=== PATIENT | male | born 1975 | race Caucasian/White ===

== ENCOUNTER 2020-02-22 07:54 | Outpatient (CLI) | payer OTHER ==
[2020-02-22 14:13] LABS: Hemoglobin 13.6 g/dL (14.0-18.0); Mean Corpuscular HGB CONC 33.6 g/dL (32.0-36.0); Mean Corpuscular Hemoglobin 31.7 pg (27.0-31.0); Mean Corpuscular Volume 94.4 fL (78.0-98.0); Mean Platelet Volume 8.8 fL (7.4-10.4); Platelet Count 307 thou/uL (130-400); RBC Distribution Width 11.2 % (11.5-14.5); Red Blood Cell (RBC) Count 4.27 mill/uL (4.70-6.10); White Blood Cell (WBC) Count 10.1 thou/uL (4.8-10.8)
[2020-02-22 14:17] LABS: PTT 27.9 sec (22.9-36.1)
[2020-02-22 14:22] LABS: INR-International Normal Ratio 0.9; Prothrombin Time 11.8 sec (12.0-14.7)
[2020-02-22 14:53] LABS: Anion Gap 14 mmol/L (10-20); BUN (Urea Nitrogen) 19 mg/dL (8.9-20.6); Calc. Creatinine Clearance 0 mL/min (70-130); Calcium 9.2 mg/dL (7.8-10.44); Carbon Dioxide 26 mmol/L (22-29); Chloride 99 mmol/L (98-107); Estimated GFR-MDRD 70; Glucose 120 mg/dL (70-105); Potassium 4.4 mmol/L (3.5-5.1); Sodium 135 mmol/L (136-145)
--- NOTE | 2020-02-22 15:02 | EKG ---
Test Reason : PREOP Blood Pressure : / mmHG Vent. Rate : 096 BPM Atrial Rate : 096 BPM P-R Int : 140 ms QRS Dur : 088 ms QT Int : 336 ms P-R-T Axes : 051 075 014 degrees QTc Int : 424 ms Normal sinus rhythm Normal ECG No previous ECGs available Confirmed by EFRA TEIXEIRA (2) on 02/22/2020 3:02:13 PM Referred By: Charly LEMUS Confirmed By:EFRA TEIXEIRA
[2020-02-22 18:53] LABS: SARS-CoV-2 MS2 Positive; SARS-CoV-2 N Gene Negative; SARS-CoV-2 S Gene Negative; SARS-CoV-2 by NAA Not Detected (NotDetected); SARS-CoV-2 orf1ab Negative
== END 2020-02-22 07:55 | disposition home or self-care (01) ==
LOC: LABBT 07:54
PROVIDERS: ATTEND Surgery
DX: Z01.818 Encounter for other preprocedural examination (principal); M51.16 Intervertebral disc disorders with radiculopathy, lumbar region; Z20.828 Contact with and (suspected) exposure to other viral communicable diseases
CPT/HCPCS: 80048; 85027; 85610; 85730; 87635; 93005; 93010; U0003

== ENCOUNTER 2020-02-25 07:28 | Day surgery (SDC) | payer OTHER ==
[2020-02-24 08:53] VITALS: BMI 29.0
[2020-02-25] MEDS ORDERED: Ketorolac Tromethamine 30 MG/ML VIAL ONE (10:15)
[2020-02-25] MEDS ORDERED: PHENYLEPHRINE-NS 100 MCG/ML 10 ML SYRINGE ONE (10:15)
[2020-02-25] MEDS ORDERED: PROPOFOL 200 MG/20 ML VIAL ONE (10:15)
[2020-02-25] MEDS ORDERED: Ondansetron PF 4 MG/2 ML Vial ONE (10:15)
[2020-02-25] MEDS ORDERED: Lidocaine 1% PF 5 ML VIAL ONE (10:15)
[2020-02-25] MEDS ORDERED: Glycopyrrolate 0.2 MG/ML 5 ML SYRINGE ONE (10:15)
[2020-02-25] MEDS ORDERED: Rocuronium Bromide 10 MG/ML (10ML VIAL) ONE (10:15)
[2020-02-25] MEDS ORDERED: Dexamethasone 20 MG/5 ML VIAL ONE (10:15)
[2020-02-25] MEDS ORDERED: EPHEDRINE 25 MG/5 ML SYRINGE ONE (10:15)
[2020-02-25] MEDS ORDERED: Midazolam HCl 2 mg/2 ml Vial ONE ×2 (10:38→13:02)
[2020-02-25] MEDS ORDERED: Fentanyl 250 MCG/5 ML VIAL ONE (10:41)
[2020-02-25] MEDS ORDERED: Ketamine 50 MG/ML (10ML VIAL) ONE (10:42)
[2020-02-25] MEDS ORDERED: Phenylephrine 10 MG/ML VIAL ONE (12:18)
[2020-02-25] MEDS ORDERED: Thrombin 5000 UNITS/5 ML VIAL ONE (13:42)
[2020-02-25] MEDS ORDERED: Fentanyl 100 MCG/2 ML VIAL ONE (14:50)
[2020-02-25] MEDS ORDERED: CEFAZOLIN 2 GM in Premix Bag 1 BAG IVPB SCH (15:45)
[2020-02-25] MEDS ORDERED: HYDROcodone/Acetaminophen 5/325 mg Tablet ONE (16:14)
--- NOTE | 2020-02-27 09:02 | OP ---
DATE OF PROCEDURE: 02/25/2020 PRE-PROCEDURE DIAGNOSIS: Low back and left L4 and L5 radiculopathy with left footdrop. POSTPROCEDURE DIAGNOSIS: Low back and left L4 and L5 radiculopathy with left footdrop. PROCEDURE PERFORMED: 1. Left L3-L4 hemilaminotomy and foraminotomy. 2. Left L4-L5 hemilaminotomy, foraminotomy, and diskectomy. 3. Use of operative microscope for microdissection. DESCRIPTION OF PROCEDURE: After informed consent was obtained from the patient, the patient was brought to the OR. Proper patient, pause, and identification were carried out. He was then placed under excellent general endotracheal anesthesia and positioned prone on the OR table. Prior L4-L5 wound was identified. This region was sterilely cleansed, prepared, and draped. Proper patient, pause, and identification were carried out. The wound was then opened with a combination of sharp, monopolar, and blunt dissection and we identified the L3-L4, L4-L5 segments and the wound was then opened with a combination of sharp, monopolar, and blunt dissection following sterile cleansing, preparation, and draping. Left L3-L4 and left L4-L5 segments were identified. Localization film confirmed our area of interest. We then performed a left L3-L4 and left L4-L5 hemilaminotomies and foraminotomies. Microscope was brought in and there was an osteophytic disk at the left L3-L4 segment, but there was no need for diskectomy at this segment as we had obtained excellent decompression with removal of the mesial left L3-L4 facet complex assuring freedom of the traversing left L4 nerve root. We then turned our attention to the left L4-L5 segment. There was disk extrusion that was in the paracentral region and the left L4-L5 hemilaminotomy, foraminotomy, and diskectomy were performed with excellent decompression of the left L4 and left L5 nerve root. Copious irrigation occurred throughout as did maximizing hemostasis. The wound was then closed in anatomic layers following the sprinkling of vancomycin powder. The patient then emerged from anesthesia. Job ID: [id number]
== END 2020-02-25 16:55 | disposition home or self-care (01) ==
LOC: SDC 07:28
PROVIDERS: ATTEND Surgery
PROC: 01NB0ZZ Release Lumbar Nerve, Open Approach (ICD-10-PCS; principal; 2020-02-25)
PROC: 0SB20ZZ Excision of Lumbar Vertebral Disc, Open Approach (ICD-10-PCS; principal; 2020-02-25)
DX: M51.16 Intervertebral disc disorders with radiculopathy, lumbar region (principal); M48.061 Spinal stenosis, lumbar region without neurogenic claudication; M21.372 Foot drop, left foot; Z79.899 Other long term (current) drug therapy; Z88.8 Allergy status to other drugs, medicaments and biological substances
CPT/HCPCS: 76000; J0690; J1100; J1885; J2250; J2370; J2405; J2704; J3010; J3370

== ENCOUNTER 2020-03-03 06:34 | Outpatient (CLI) | payer OTHER ==
[2020-03-03 17:49] LABS: SARS-CoV-2 MS2 Positive; SARS-CoV-2 N Gene Negative; SARS-CoV-2 S Gene Negative; SARS-CoV-2 by NAA Not Detected (NotDetected); SARS-CoV-2 orf1ab Negative
== END 2020-03-03 06:35 | disposition home or self-care (01) ==
LOC: LABBT 06:34
PROVIDERS: ATTEND Anesthesiology Pain Medicine
DX: G89.4 Chronic pain syndrome (principal); M48.061 Spinal stenosis, lumbar region without neurogenic claudication; M21.372 Foot drop, left foot; Z20.828 Contact with and (suspected) exposure to other viral communicable diseases
CPT/HCPCS: 87635; U0003

== ENCOUNTER 2020-03-08 12:22 | Day surgery (SDC) | payer OTHER ==
[2020-03-07 09:22] VITALS: BMI 29.0
[2020-03-08] MEDS ORDERED: Bupivacaine PF 0.5% 30 ML VIAL ONE (13:04)
[2020-03-08] MEDS ORDERED: Lidocaine 2% PF 5 ML VIAL ONE (13:04)
[2020-03-08] MEDS ORDERED: EPINEPHrine 1 MG/ML AMP ONE (13:04)
[2020-03-08] MEDS ORDERED: Midazolam HCl 2 mg/2 ml Vial ONE (13:08)
[2020-03-08] MEDS ORDERED: Fentanyl 100 MCG/2 ML VIAL ONE (13:08)
[2020-03-08] MEDS ORDERED: Propofol 500 MG/50 ML VIAL ONE (13:09)
[2020-03-08] MEDS ORDERED: Ketamine 50 MG/ML (10ML VIAL) ONE (13:09)
[2020-03-08] MEDS ORDERED: Lidocaine 2% w/Epinephrine 1:200K 20 ML VIAL ONE (13:37)
[2020-03-08] MEDS ORDERED: CEFAZOLIN 1 GM VIAL ONE (14:10)
[2020-03-08] MEDS ORDERED: Sodium Chloride 0.9% 100 ML ONE (14:11)
--- NOTE | 2020-03-08 22:21 | OP ---
DATE OF PROCEDURE: 03/08/2020 PREOPERATIVE DIAGNOSIS: 1. Nonfunctioning spinal cord stimulation internal pulse generator, nonrechargeable, [employer]. 2. Migrated nonfunctioning spinal cord stimulation lead. 3. Intact second functioning spinal cord stimulation lead. ANESTHESIA: TIVA. SUMMARY: Risks and benefits were discussed. Informed consent was obtained, was taken to the OR, prepped and draped in standard fashion. Fluoroscopy identified the migrated spinal cord stimulation lead that had to be replaced was nonfunctional. Local anesthetic was used to anesthetize the prior pocket site. Incision was made using the Metzenbaum for blunt dissection. Care was taken to dissect down to the internal pulse generator, identifying all wires and lead wires to ensure no traumatic damage to the wires with the instruments. The IPG was then removed from the pocket. The set screws were loosened and the leads were disconnected from the internal pulse generator. Under fluoroscopic guidance, the migrated lead was identified and removed from the pocket. This left the remaining functional spinal cord stimulation lead with the superior or cephalad electrode at the inferior endplate of T8. Under fluoroscopic guidance, the spinous processes of L1 and L2 were easily identified. After adequate local anesthesia, incision was carried down to the fascia and using blunt dissection, the fascia was undermined to the supraspinous. Dissection was carried down to the supraspinous ligament. Using the supplied Touhy needle, T2-L1 interspace, loss of resistance technique, the epidural space was easily identified without paresthesias, CSF, or heme. Note that the patient was pleasantly sedated during this time, but awake and conversive. The spinal cord stimulation lead was then placed into the epidural space over the dorsal columns with the most cephalad electrode at the superior endplate of T7. Intraoperative programming ensued with both electrodes, including the one that had migrated slightly caudad with the most cephalad electrode at the inferior endplate of T8. Appropriate bilateral foot stimulation was achieved with both electrodes. The stylet was removed intact. The Touhy needle was removed intact. Anchoring was accomplished with the supplied locking [employer] anchor. It was slipped over the lead and then sewn to the fascia with two 2-0 silk sutures. The lead was then locked into place. Fluoroscopy was then used to identify the prior tunneling site from the previous lead to ensure no damage during tunneling between incisions. After adequate local anesthesia, under fluoroscopic guidance, tunneling was accomplished between incisions. The lead was placed through the straw and the straw was removed. The leads were then attached to the new IPG non-rechargeable [employer] generator placed in the pocket riding side out. All counts were correct x2. Closure was accomplished in layers with 2-0 interrupted Vicryl taking care to visualize all electrodes during closure, so no damaged ensued. The skin was closed with a running subcuticular 3-0 Rapide and Steri-Strips were placed. There were no complications from the procedure and he tolerated it well. Job ID: [id number]
== END 2020-03-08 16:45 | disposition home or self-care (01) ==
LOC: SDC 12:22
PROVIDERS: ATTEND Anesthesiology Pain Medicine
PROC: 0JPT0MZ Removal of Stimulator Generator from Trunk Subcutaneous Tissue and Fascia, Open Approach (ICD-10-PCS; principal; 2020-03-08)
PROC: 0JH70DZ Insertion of Multiple Array Stimulator Generator into Back Subcutaneous Tissue and Fascia, Open Approach (ICD-10-PCS; principal; 2020-03-08)
PROC: 00HU3MZ Insertion of Neurostimulator Lead into Spinal Canal, Percutaneous Approach (ICD-10-PCS; principal; 2020-03-08)
DX: T85.113A Breakdown (mechanical) of implanted electronic neurostimulator, generator, initial encounter (principal); T85.112A Breakdown (mechanical) of implanted electronic neurostimulator of spinal cord electrode (lead), initial encounter; T85.122A Displacement of implanted electronic neurostimulator of spinal cord electrode (lead), initial encounter; M48.061 Spinal stenosis, lumbar region without neurogenic claudication; M21.372 Foot drop, left foot; J45.909 Unspecified asthma, uncomplicated; I10 Essential (primary) hypertension; F41.9 Anxiety disorder, unspecified; G62.9 Polyneuropathy, unspecified; E78.5 Hyperlipidemia, unspecified; N52.9 Male erectile dysfunction, unspecified; F17.290 Nicotine dependence, other tobacco product, uncomplicated; Z79.899 Other long term (current) drug therapy; Z88.8 Allergy status to other drugs, medicaments and biological substances
CPT/HCPCS: C1767; C1778; J0171; J0690; J2001; J2250; J2704; J3010; J3490; S0020

== ENCOUNTER 2020-07-12 12:24 | Outpatient (CLI) | payer OTHER ==
[~2020-07-12 12:24] MED LIST: Magnevist 469MG/ML 20 ML VIAL ONE
== END 2020-07-12 12:25 | disposition home or self-care (01) ==
LOC: MRI 12:24
PROVIDERS: ATTEND Surgery
DX: M25.551 Pain in right hip (principal); M25.552 Pain in left hip; M54.5 Low back pain; M79.606 Pain in leg, unspecified; M47.816 Spondylosis without myelopathy or radiculopathy, lumbar region; Z98.890 Other specified postprocedural states
CPT/HCPCS: 72158; A9579

== ENCOUNTER 2020-09-05 13:02 | Outpatient (CLI) | payer OTHER ==
[2020-09-05 13:42] LABS: Hemoglobin 12.3 g/dL (13.5-17.5); Mean Corpuscular HGB CONC 33.3 g/dL (32.0-36.0); Mean Corpuscular Hemoglobin 30.8 pg (27.0-33.0); Mean Corpuscular Volume 92.5 fl (81.2-95.1); Mean Platelet Volume 10.6 fl (7.4-10.4); Platelet Count 287 10x3/uL (150-450); RBC Distribution Width 12.3 % (11.5-14.5); Red Blood Cell (RBC) Count 3.99 10x6/uL (4.32-5.72); White Blood Cell (WBC) Count 9.3 10x3/uL (3.5-10.5)
[2020-09-05 14:28] LABS: Anion Gap 16 mmol/L (10-20); BUN (Urea Nitrogen) 17 mg/dL (8.9-20.6); Calc. Creatinine Clearance 0 mL/min (70-130); Calcium 9.1 mg/dL (7.8-10.44); Carbon Dioxide 24 mmol/L (22-29); Chloride 103 mmol/L (98-107); Glucose 99 mg/dL (70-105); Potassium 4.7 mmol/L (3.5-5.1); Sodium 138 mmol/L (136-145)
[2020-09-05 14:42] LABS: INR-International Normal Ratio 0.9; PTT 26.2 sec (22.0-33.0); Prothrombin Time 10.4 sec (9.5-12.1)
[2020-09-06 05:43] LABS: SARS-CoV-2 PCR by NAA Not Detected (NotDetected)
== END 2020-09-05 13:03 | disposition home or self-care (01) ==
LOC: LABBT 13:02
PROVIDERS: ATTEND Surgery
DX: Z01.818 Encounter for other preprocedural examination (principal); Z20.822 Contact with and (suspected) exposure to COVID-19; M51.16 Intervertebral disc disorders with radiculopathy, lumbar region
CPT/HCPCS: 80048; 85027; 85610; 85730; 87635; 93005; 93010; U0003; U0005

== ENCOUNTER 2020-09-08 06:09 | Day surgery (SDC) | payer OTHER ==
[2020-09-07 10:28] VITALS: BMI 28.2
[2020-09-08] MEDS ORDERED: Thrombin 5000 UNITS/5 ML VIAL ONE (07:00)
[2020-09-08] MEDS ORDERED: Fentanyl 250 MCG/5 ML VIAL ONE (07:10)
[2020-09-08] MEDS ORDERED: SUGAMMADEX SODIUM 200 MG/2 ML VIAL ONE (07:11)
[2020-09-08] MEDS ORDERED: HYDROmorphone 2 MG/ML VIAL ONE (07:11)
[2020-09-08] MEDS ORDERED: Midazolam HCl 2 mg/2 ml Vial ONE (07:15)
[2020-09-08] MEDS ORDERED: Ketorolac Tromethamine 30 MG/ML VIAL ONE (07:33)
[2020-09-08] MEDS ORDERED: Dexamethasone 20 MG/5 ML VIAL ONE (07:33)
[2020-09-08] MEDS ORDERED: Ondansetron PF 4 MG/2 ML Vial ONE (07:33)
[2020-09-08] MEDS ORDERED: ePHEDrine Sulfate 50 MG/10 ML VIAL ONE (07:33)
[2020-09-08] MEDS ORDERED: Rocuronium Bromide 10 MG/ML (10ML VIAL) ONE (07:33)
[2020-09-08] MEDS ORDERED: PROPOFOL 200 MG/20 ML VIAL ONE (07:33)
[2020-09-08] MEDS ORDERED: PHENYLEPHRINE-NS 100 MCG/ML 10 ML SYRINGE ONE (07:33)
[2020-09-08] MEDS ORDERED: Lidocaine 1% PF 5 ML VIAL ONE (07:33)
[2020-09-08] MEDS ORDERED: Glycopyrrolate 0.2 MG/ML 5 ML SYRINGE ONE (07:33)
[2020-09-08] MEDS ORDERED: Phenylephrine 10 MG/ML VIAL ONE (08:37)
[2020-09-08] MEDS ORDERED: Promethazine HCl 25 MG/ML VIAL IM PRN (10:10)
[2020-09-08] MEDS ORDERED: Ondansetron HCl/PF 4 MG/2 ML Vial IVP PRN (10:10)
[2020-09-08] MEDS ORDERED: HYDROmorphone 2 MG/ML VIAL SLOW IVP PRN (10:10)
[2020-09-08] MEDS ORDERED: Promethazine HCl 25 MG/ML VIAL SLOW IVP PRN (10:10)
[2020-09-08] MEDS ORDERED: Morphine Sulfate 2 MG/ML SYRINGE SLOW IVP PRN (10:10)
[2020-09-08] MEDS ORDERED: PACU-Morphine 4MG/ML VIAL SLOW IVP PRN (10:10)
[2020-09-08] MEDS ORDERED: Meperidine HCl/PF 25 MG/ML VIAL SLOW IVP PRN (10:10)
[2020-09-08] MEDS ORDERED: Fentanyl 100 MCG/2 ML VIAL ONE (10:29)
[2020-09-08] MEDS ORDERED: tiZANidine HCl 4 MG TAB ONE (10:33)
[2020-09-08] MEDS ORDERED: HYDROcodone/Acetaminophen 5/325 mg Tablet ONE (12:25)
== END 2020-09-08 13:05 | disposition home or self-care (01) ==
LOC: SDC 06:09
PROVIDERS: ATTEND Surgery
PROC: 0ST20ZZ Resection of Lumbar Vertebral Disc, Open Approach (ICD-10-PCS; principal; 2020-09-08)
DX: M51.16 Intervertebral disc disorders with radiculopathy, lumbar region (principal); Z79.82 Long term (current) use of aspirin; Z79.899 Other long term (current) drug therapy; Z88.8 Allergy status to other drugs, medicaments and biological substances
CPT/HCPCS: 72020; 76000; 80048; 85027; 85610; 85730; 87635; 93005; 93010; J0690; J1100; J1170; J1885; J2250; J2370; J2405; J2704; J3010; J3370; U0003; U0005

== ENCOUNTER 2020-10-30 10:45 | Outpatient (CLI) | payer OTHER | END 2020-10-30 10:46 | disposition home or self-care (01) | LOC: BICRAD 10:45 | PROVIDERS: ATTEND Anesthesiology Pain Medicine | DX: M48.062 Spinal stenosis, lumbar region with neurogenic claudication (principal); R29.898 Other symptoms and signs involving the musculoskeletal system; M47.816 Spondylosis without myelopathy or radiculopathy, lumbar region | CPT/HCPCS: 72110 ==

== ENCOUNTER 2020-12-21 | Outpatient (CLI) | payer OTHER | END 2020-12-21 12:56 | disposition home or self-care (01) ==

== ENCOUNTER → 2021-01-25 | Outpatient (CLI) | payer OTHER ==
[2021-01-25 15:07] LABS: Hemoglobin 13.1 g/dL (13.5-17.5); Mean Corpuscular HGB CONC 33.4 g/dL (32.0-36.0); Mean Corpuscular Hemoglobin 31.7 pg (27.0-33.0); Mean Corpuscular Volume 94.9 fl (81.2-95.1); Mean Platelet Volume 11.2 fl (7.4-10.4); Platelet Count 314 10x3/uL (150-450); RBC Distribution Width 12.2 % (11.5-14.5); Red Blood Cell (RBC) Count 4.13 10x6/uL (4.32-5.72); White Blood Cell (WBC) Count 11.7 10x3/uL (3.5-10.5)
[2021-01-25 15:11] LABS: INR-International Normal Ratio 0.9; PTT 25.3 sec (22.0-33.0); Prothrombin Time 10.3 sec (9.5-12.1)
[2021-01-25 15:19] LABS: Anion Gap 16 mmol/L (10-20); BUN (Urea Nitrogen) 20 mg/dL (8.9-20.6); Calc. Creatinine Clearance 0 mL/min (70-130); Calcium 9.7 mg/dL (7.8-10.44); Carbon Dioxide 24 mmol/L (22-29); Chloride 105 mmol/L (98-107); Glucose 97 mg/dL (70-105); Potassium 4.6 mmol/L (3.5-5.1); Sodium 140 mmol/L (136-145)
[2021-01-26 09:10] LABS: SARS-CoV-2 PCR by NAA Not Detected (NotDetected)
== END ==
LOC: LABBT 08:00
DX: Z01.818 Encounter for other preprocedural examination (principal); M51.16 Intervertebral disc disorders with radiculopathy, lumbar region; M48.062 Spinal stenosis, lumbar region with neurogenic claudication; Z20.822 Contact with and (suspected) exposure to COVID-19
CPT/HCPCS: 80048; 85027; 85610; 85730; 86850; 86900; 86901; 93005; 93010; U0003; U0005

== ENCOUNTER 2021-01-30 05:56 | Inpatient (IN) | payer OTHER ==
[2021-01-29 12:01] VITALS: BMI 26.9
[2021-01-30] MEDS ORDERED: Thrombin 5000 UNITS/5 ML VIAL ONE ×2 (06:38)
[2021-01-30] MEDS ORDERED: Fentanyl 250 MCG/5 ML VIAL ONE (07:14)
[2021-01-30] MEDS ORDERED: Midazolam HCl 2 mg/2 ml Vial ONE (07:20)
[2021-01-30] MEDS ORDERED: Albumin 5% 500 ML ONE (07:32)
[2021-01-30] MEDS ORDERED: Dexamethasone 20 MG/5 ML VIAL ONE (07:42)
[2021-01-30] MEDS ORDERED: Albuterol Sulfate HFA (OR ONLY) ONE (07:42)
[2021-01-30] MEDS ORDERED: Ondansetron PF 4 MG/2 ML Vial ONE ×2 (07:42)
[2021-01-30] MEDS ORDERED: Glycopyrrolate 0.2 MG/ML 5 ML SYRINGE ONE (07:42)
[2021-01-30] MEDS ORDERED: Rocuronium Bromide 10 MG/ML (10ML VIAL) ONE (07:42)
[2021-01-30] MEDS ORDERED: Lidocaine 1% PF 5 ML VIAL ONE (07:42)
[2021-01-30] MEDS ORDERED: PROPOFOL 200 MG/20 ML VIAL ONE (07:42)
[2021-01-30] MEDS ORDERED: ePHEDrine 50 MG/ML VIAL ONE (07:42)
[2021-01-30] MEDS ORDERED: PHENYLEPHRINE-NS 100 MCG/ML 10 ML SYRINGE ONE (07:42)
[2021-01-30] MEDS ORDERED: Vecuronium 10 MG VIAL ONE (07:42)
[2021-01-30] MEDS ORDERED: Phenylephrine 10 MG/ML VIAL ONE (09:17)
[2021-01-30] MEDS ORDERED: PACU-Morphine 4MG/ML VIAL SLOW IVP PRN (11:36)
[2021-01-30] MEDS ORDERED: HYDROmorphone 2 MG/ML VIAL SLOW IVP PRN (11:36)
[2021-01-30] MEDS ORDERED: Promethazine HCl 25 MG/ML VIAL IM PRN (11:36)
[2021-01-30] MEDS ORDERED: Ondansetron HCl/PF 4 MG/2 ML Vial IVP PRN (11:36)
[2021-01-30] MEDS ORDERED: Promethazine HCl 25 MG/ML VIAL IVPB PRN (11:36)
[2021-01-30] MEDS ORDERED: Morphine Sulfate 2 MG/ML SYRINGE SLOW IVP PRN (11:36)
[2021-01-30] MEDS ORDERED: HYDROmorphone 2 MG/ML VIAL ONE ×2 (12:12→13:17)
[2021-01-30] MEDS ORDERED: Morphine 2 MG/ML VIAL SLOW IVP PRN (12:44)
[2021-01-30] MEDS ORDERED: Acetaminophen 325 MG TAB PO PRN (12:44)
[2021-01-30] MEDS ORDERED: Acetaminophen/Codeine 30-300mg Tablet PO PRN (12:44)
[2021-01-30] MEDS ORDERED: traMADol HCl 50 MG TAB PO PRN (12:44)
[2021-01-30] MEDS ORDERED: Cyclobenzaprine 10 MG TAB PO PRN (12:46)
[2021-01-30] MEDS ORDERED: Fentanyl 100 MCG/2 ML VIAL ONE (13:17)
[2021-01-30] MEDS ORDERED: Albuterol Sulfate 2.5 mg/3 ml Neb NEB PRN (14:44)
[2021-01-30] MEDS: Gabapentin 400 MG CAP PO SCH ×2 (16:41→20:18)
[2021-01-30] MEDS: Sodium Chloride 0.9% 1,000 ML IV SCH (16:42)
[2021-01-30] MEDS: Diclofenac Sodium 50 MG DR TAB PO SCH (19:48)
[2021-01-30] MEDS: ceFAZolin Sodium/D5W 2 GM in Premix Bag 1 BAG IVPB SCH (20:19)
[2021-01-30] MEDS: Atorvastatin Calcium 20 MG TAB PO SCH (20:19)
[2021-01-30] MEDS: tiZANidine HCl 4 MG TAB PO PRN (22:13)
[2021-01-30] MEDS ORDERED: Famotidine 20 MG TAB PO SCH (22:15)
[2021-01-30] MEDS: HYDROcodone/Acetaminophen 7.5/325 mg Tablet PO PRN (23:33)
[2021-01-31] MEDS: Sodium Chloride 0.9% 1,000 ML IV SCH ×2 (02:05→15:48)
[2021-01-31] MEDS: ceFAZolin Sodium/D5W 2 GM in Premix Bag 1 BAG IVPB SCH ×3 (04:35→20:34)
[2021-01-31 07:00] LABS: #Lymphocytes 1.1 thou/uL (1.20-3.40); #Neutrophils 11.1 thou/uL (1.40-6.50); %Basophils 0.1 % (0.0-1.0); %Eosinophils 0.2 % (0.0-10.0); %Lymphocytes 8.3 % (21.0-51.0); %Monocytes 7.4 % (0.0-10.0); %Neutrophils 83.9 % (42.0-75.0); Mean Corpuscular HGB CONC 33.6 g/dL (32.0-36.0); Mean Corpuscular Hemoglobin 31.7 pg (27.0-31.0); Mean Corpuscular Volume 94.5 fL (78.0-98.0); Mean Platelet Volume 8.5 fL (7.4-10.4); Platelet Count 250 thou/uL (130-400); RBC Distribution Width 11.2 % (11.5-14.5); Red Blood Cell (RBC) Count 3.14 mill/uL (4.70-6.10); White Blood Cell (WBC) Count 13.2 thou/uL (4.8-10.8)
[2021-01-31 07:33] LABS: Anion Gap 13 mmol/L (10-20); BUN (Urea Nitrogen) 18 mg/dL (8.9-20.6); Calc. Creatinine Clearance 116 mL/min (70-130); Calcium 8.6 mg/dL (7.8-10.44); Carbon Dioxide 24 mmol/L (22-29); Chloride 103 mmol/L (98-107); Glucose 115 mg/dL (70-105); Sodium 136 mmol/L (136-145)
[2021-01-31] MEDS: Lisinopril 20 MG TAB PO SCH (08:29)
[2021-01-31] MEDS: Multivit, Therapeutic 1 TAB PO SCH (08:30)
[2021-01-31] MEDS: Hydrochlorothiazide 25 MG TAB PO SCH (08:30)
[2021-01-31] MEDS: Diclofenac Sodium 50 MG DR TAB PO SCH ×2 (08:31→20:34)
[2021-01-31] MEDS: Famotidine 20 MG TAB PO SCH (08:33)
[2021-01-31] MEDS: Gabapentin 400 MG CAP PO SCH ×3 (08:34→22:13)
[2021-01-31] MEDS: HYDROcodone/Acetaminophen 7.5/325 mg Tablet PO PRN ×3 (08:34→22:12)
[2021-01-31] MEDS: Atorvastatin Calcium 20 MG TAB PO SCH (22:11)
[2021-01-31] MEDS: tiZANidine HCl 4 MG TAB PO PRN (22:11)
[2021-02-01] MEDS: ceFAZolin Sodium/D5W 2 GM in Premix Bag 1 BAG IVPB SCH (04:18)
[2021-02-01] MEDS: HYDROcodone/Acetaminophen 7.5/325 mg Tablet PO PRN ×2 (04:19→08:44)
[2021-02-01] MEDS: Sodium Chloride 0.9% 1,000 ML IV SCH (04:24)
[2021-02-01 07:59] VITALS: BP 128/82; TEMP 98.9
[2021-02-01] MEDS: Multivit, Therapeutic 1 TAB PO SCH (08:43)
[2021-02-01] MEDS: Diclofenac Sodium 50 MG DR TAB PO SCH (08:43)
[2021-02-01] MEDS: Hydrochlorothiazide 25 MG TAB PO SCH (08:43)
[2021-02-01] MEDS: Gabapentin 400 MG CAP PO SCH (08:43)
[2021-02-01] MEDS: Famotidine 20 MG TAB PO SCH (08:43)
[2021-02-01] MEDS: Lisinopril 20 MG TAB PO SCH (08:44)
== END 2021-02-01 09:30 | disposition home or self-care (01) | DRG 455 ==
LOC: SDC 05:56 → SJJU 15:49
PROVIDERS: ADMIT Surgery; ATTEND Surgery
PROC: 01NB0ZZ Release Lumbar Nerve, Open Approach (ICD-10-PCS; principal; 2021-01-30)
PROC: 0SG10AJ Fusion of 2 or more Lumbar Vertebral Joints with Interbody Fusion Device, Posterior Approach, Anterior Column, Open Approach (ICD-10-PCS; 2021-01-30)
PROC: 0SG1071 Fusion of 2 or more Lumbar Vertebral Joints with Autologous Tissue Substitute, Posterior Approach, Posterior Column, Open Approach (ICD-10-PCS; 2021-01-30)
PROC: 0SB20ZZ Excision of Lumbar Vertebral Disc, Open Approach (ICD-10-PCS; 2021-01-30)
DX: M51.36 Other intervertebral disc degeneration, lumbar region (principal); M48.061 Spinal stenosis, lumbar region without neurogenic claudication
CPT/HCPCS: 36415; 76000; 80048; 85025; C1713; C1768; J0690; J1100; J1170; J2250; J2270; J2370; J2405; J2704; J3010; J3370; J3490; J7050; P9045

== ENCOUNTER 2022-10-21 13:26 | Outpatient (CLI) | payer OTHER | END 2022-10-21 13:27 | disposition home or self-care (01) | LOC: BICMRI 13:26 | PROVIDERS: ATTEND Surgery | DX: M47.26 Other spondylosis with radiculopathy, lumbar region (principal); M79.9 Soft tissue disorder, unspecified; R29.898 Other symptoms and signs involving the musculoskeletal system; Z98.890 Other specified postprocedural states | CPT/HCPCS: 72131 ==

== ENCOUNTER 2022-10-21 14:44 | Outpatient (CLI) | payer OTHER | END 2022-10-21 14:45 | disposition home or self-care (01) | LOC: RAD 14:44 | PROVIDERS: ATTEND Surgery | DX: M47.26 Other spondylosis with radiculopathy, lumbar region (principal); R29.898 Other symptoms and signs involving the musculoskeletal system | CPT/HCPCS: 72120 ==

== ENCOUNTER 2024-02-06 09:19 | Outpatient (CLI) | payer BC | END 2024-02-06 09:20 | disposition home or self-care (01) | LOC: MRI 09:19 | PROVIDERS: ATTEND Nurse Practitioner Family | DX: M47.26 Other spondylosis with radiculopathy, lumbar region (principal); M47.817 Spondylosis without myelopathy or radiculopathy, lumbosacral region; M51.35 Other intervertebral disc degeneration, thoracolumbar region; M47.815 Spondylosis without myelopathy or radiculopathy, thoracolumbar region; M48.05 Spinal stenosis, thoracolumbar region; M51.16 Intervertebral disc disorders with radiculopathy, lumbar region; M48.061 Spinal stenosis, lumbar region without neurogenic claudication; M48.07 Spinal stenosis, lumbosacral region; Z98.890 Other specified postprocedural states | CPT/HCPCS: 72148 ==